=== PATIENT | female | born 1995 | race Caucasian/White ===

== ENCOUNTER 2022-03-30 20:16 | Emergency (ER) | payer BC, OTHER ==
[2022-03-30] MEDS ORDERED: Ondansetron 4 MG/2 ML SDV IVPUSH ONE (20:48)
[2022-03-30] MEDS ORDERED: Sodium Chloride 0.9% 10 ML Syringe FLUSH PRN (20:48)
[2022-03-30] MEDS ORDERED: Sodium Chloride 0.9% 1,000 ML IV SCH (21:00)
[2022-03-30 21:40] LABS: ESTIMATED GFR 123 mL/min (>60)
== END 2022-03-30 23:28 | disposition home or self-care (01) ==
LOC: JP.ED 20:16
DX: O21.1 Hyperemesis gravidarum with metabolic disturbance (principal); E86.0 Dehydration; Z3A.01 Less than 8 weeks gestation of pregnancy
CPT/HCPCS: 36415; 80053; 84702; 85025; 96361; 96374; 99282; 99284; J2405; J3490; J7030

== ENCOUNTER 2022-04-09 15:38 | Emergency (ER) | payer OTHER ==
[2022-04-09] MEDS ORDERED: Lactated Ringers 1,000 ML IV ONE (16:36)
[2022-04-09] MEDS ORDERED: Sodium Chloride 0.9% 10 ML Syringe FLUSH PRN (16:36)
[2022-04-09] MEDS ORDERED: Ondansetron 4 MG/2 ML SDV IVPUSH ONE (16:36)
== END 2022-04-09 18:09 | disposition home or self-care (01) ==
LOC: JP.ED 15:38
DX: O21.0 Mild hyperemesis gravidarum (principal); Z3A.08 8 weeks gestation of pregnancy
CPT/HCPCS: 96361; 96374; 99283; J2405; J7120